=== PATIENT | female | born 1990 | race Caucasian/White ===

== ENCOUNTER 2017-10-22 10:46 | Emergency (ER) | payer MEDICAID, OTHER ==
[~2017-10-22] VITALS: Ht 170.2 cm; Wt 60.0 kg
[~2017-10-22 10:46] MED LIST: CLIN150 PO; HYDR-3533 PO
[2017-10-22 10:47] VITALS: BP 148/72; PULSE 76; RESP 16; TEMP 98.1; O2SAT 99
[2017-10-22 11:03] VITALS: BP 144/82; PULSE 81; RESP 16; O2SAT 99
--- NOTE | 2017-10-22 11:09 | PD ---
HPI Chief Complaint: Related Problem Time Seen by Provider: 10:58 Travel History International Travel<30 days: No Contact w/Intl Traveler<30days: No Traveled to known affect area: No History of Present Illness HPI 27-year-old female presents to the emergency department for evaluation of vaginal bleeding during . Patient states she is in her first trimester , but does not know how far along she has. She states her last menstrual cycle was sometime in May, does not remember when. Patient states is her first . She reports 2 positive test at home. She does not know her blood type. She states she started with vaginal bleeding last night. She has been through 2 pads since then. Patient reports associated abdominal cramping. She denies vaginal discharge or risk of STDs. She reports no chronic medical problems and takes no prescribed medications. Moderate severity. No exacerbating or alleviating factors. PFSH Past Medical History Medical History: Denies Significant Hx Genitourinary: Yes (KIDNEY INFECTIONS.) Immunizations Current: Yes (not sure) Tetanus Vaccination: < 5 Years Influenza Vaccination: No ?: LMP: UNSURE : 1 Para: 0 Past Surgical History Surgical History: No Previous Surgery Social History Alcohol Use: No (not currently) Tobacco Use: Yes Substance Use: Yes (marijuana, quit) Allergies-Medications (Allergen,Severity, Reaction): Coded Allergies: Sulfa (Sulfonamide Antibiotics) (Unverified Allergy, Intermediate, ) Reported Meds & Prescriptions Reported Meds & Active Scripts Active Review of Systems Except as stated in HPI: all other systems reviewed are Neg Physical Exam Narrative GENERAL: Well-nourished, well-developed female patient, afebrile. SKIN: Focused skin assessment warm/dry. HEAD: Normocephalic. Atraumatic. EYES: No scleral icterus. No injection or drainage. NECK: Supple, trachea midline. No JVD or lymphadenopathy. CARDIOVASCULAR: Regular rate and rhythm without murmurs, gallops, or rubs. RESPIRATORY: Breath sounds equal bilaterally. No accessory muscle use. Lungs sounds are clear to auscultation. GASTROINTESTINAL: Abdomen soft, non-tender, nondistended. MUSCULOSKELETAL: No cyanosis, or edema. BACK: Nontender without obvious deformity. No CVA tenderness. GENITOURINARY: Normal external genitalia without lesions or erythema. Vaginal vault with blood noted. Cervical os with blood coming from os. No cervical motion tenderness. Uterus nontender and nonenlarged. Bilateral adnexa nontender without masses. This exam was done with RN at bedside. Data Data Last Documented VS Vital Signs Date Time Temp Pulse Resp B/P (MAP) Pulse Ox O2 Delivery O2 Flow Rate FiO2 10/22/17 11:03 81 16 144/82 (102) 99 Room Air 10/22/17 10:47 98.1 Orders Orders Beta Hcg (Quant/Titer) (10/22/17 11:08) Complete Blood Count With Diff (10/22/17 11:08) Basic Metabolic Panel (Bmp) (10/22/17 11:08) Complete Rh (10/22/17 11:08) Urinalysis - C+S If Indicated (10/22/17 11:08) Urine Culture (10/22/17 11:20) Us Pelvis (Ques Pr/Ect)W Trans (10/22/17 ) Labs Laboratory Tests Test 10/22/17 11:15 10/22/17 11:20 White Blood Count 6.1 TH/MM3 Red Blood Count 4.46 MIL/MM3 Hemoglobin 14.0 GM/DL Hematocrit 40.8 % Mean Corpuscular Volume 91.5 FL Mean Corpuscular Hemoglobin 31.5 PG Mean Corpuscular Hemoglobin Concent 34.4 % Red Cell Distribution Width 12.2 % Platelet Count 174 TH/MM3 Mean Platelet Volume 9.5 FL Neutrophils (%) (Auto) 51.6 % Lymphocytes (%) (Auto) 30.6 % Monocytes (%) (Auto) 16.2 % Eosinophils (%) (Auto) 1.1 % Basophils (%) (Auto) 0.5 % Neutrophils # (Auto) 3.2 TH/MM3 Lymphocytes # (Auto) 1.9 TH/MM3 Monocytes # (Auto) 1.0 TH/MM3 Eosinophils # (Auto) 0.1 TH/MM3 Basophils # (Auto) 0.0 TH/MM3 CBC Comment DIFF FINAL Differential Comment Blood Urea Nitrogen 10 MG/DL Creatinine 0.70 MG/DL Random Glucose 92 MG/DL Calcium Level 8.7 MG/DL Sodium Level 136 MEQ/L Potassium Level 3.8 MEQ/L Chloride Level 105 MEQ/L Carbon Dioxide Level 23.2 MEQ/L Anion Gap 8 MEQ/L Estimat Glomerular Filtration Rate 102 ML/MIN Human Chorionic Gonadotropin, Quant 1219 MIU/ML Urine Color RED Urine Turbidity CLOUDY Urine pH 5.5 Urine Specific [place] 1.021 Urine Protein 100 mg/dL Urine Glucose (UA) NEG mg/dL Urine Ketones TRACE mg/dL Urine Occult Blood LARGE Urine Nitrite NEG Urine Bilirubin NEG Urine Urobilinogen LESS THAN 2.0 MG/DL Urine Leukocyte Esterase MOD Urine RBC /hpf Urine WBC 136 /hpf Urine Squamous Epithelial Cells 56 /hpf Urine Bacteria MOD /hpf Urine Mucus FEW /lpf Microscopic Urinalysis Comment CULTURE INDICATED MDM Medical Decision Making Medical Screen Exam Complete: Yes Emergency Medical Condition: Yes Medical Record Reviewed: Yes Interpretation(s) Last Impressions Pelvis Ultrasound 10/22/17 0000 Signed Impressions: Service Date/Time: Sunday, October 22, 2017 12:21 - CONCLUSION: Likely early intrauterine gestation. Clinical, laboratory and ultrasound followup as appropriate Cipriano Castillo MD Differential Diagnosis Threatened versus spontaneous versus intrauterine versus UTI Narrative Course 27-year-old female presents to the emergency department for evaluation of vaginal bleeding during . CBC, BMP, beta hCG, complete Rh, UA, urine tests are ordered and pending. Ultrasound is ordered and pending. CBC shows no acute abnormality. BMP is unremarkable. Beta HCG is 1219. UA shows moderate leukocyte esterase, 136 WBC. Blood type is A+. US shows likely early intrauterine gestation; clinical, laboratory and ultrasound follow-up as appropriate. I discussed results with the patient. She is instructed to follow up with an tuber helper. I'll give her the information for the [facility]. She needs repeat beta hCG in 48 hours. She verbalizes understanding. Patient will be discharged prescription for Macrobid for UTI. I did instruct her to be on pelvic rest until cleared by tuber helper. The patient was discharged in stable condition with instructions, including return instructions and follow up instructions. Diagnosis Primary Impression: Threatened miscarriage Referrals: [facility] call for appointment [employer] call for appointment Patient Instructions: General Instructions, Threatened Miscarriage (ED) Additional Instructions: Pelvic rest. Follow-up with tuber helper in 48 hours for repeat beta hCG. Take antibiotic as directed until gone for UTI. Follow-up with your primary care physician. Return to the emergency department for any acute worsening of symptoms. Med/Other Pt SpecificInfo: Prescription(s) given Scripts Nitrofurantoin Monohydrate Macrocrystals (Macrobid) 100 Mg Capsule 100 MG PO BID for Infection for 7 Days, #14 CAP 0 Refills Prov: Bailee Agarwal 10/22/17 Disposition: 01 DISCHARGE HOME Condition: Stable Bailee Agarwal Oct 22, 2017 11:09
[2017-10-22 11:35] LABS: AUTOMATED NEUTROPHIL # 3.2 TH/MM3 (1.8-7.7); BASOPHIL % 0.5 % (0.0-2.0); EOSINOPHIL # 0.1 TH/MM3 (0-0.4); EOSINOPHIL % 1.1 % (0.0-4.0); HEMATOCRIT 40.8 % (35.0-46.0); LYMPH % 30.6 % (9.0-44.0); LYMPHOCYTE # 1.9 TH/MM3 (1.0-4.8); MEAN CELL VOLUME 91.5 FL (80.0-100.0); MEAN CORPUSCULAR HEMOGLOBIN 31.5 PG (27.0-34.0); MEAN CORPUSCULAR HGB CONC 34.4 % (32.0-36.0); MEAN PLATELET VOLUME 9.5 FL (7.0-11.0); MONO % 16.2 % (0.0-8.0); NEUT % 51.6 % (16.0-70.0); PLATELET COUNT 174 TH/MM3 (150-450); RED BLOOD COUNT 4.46 MIL/MM3 (4.00-5.30); RED CELL DISTRIBUTION WIDTH 12.2 % (11.6-17.2); WHITE BLOOD COUNT 6.1 TH/MM3 (4.0-11.0)
[2017-10-22 11:45] LABS: BACTERIA, URINE MOD /hpf; BILIRUBIN, URINE NEG (NEG); BLOOD, URINE LARGE (NEG); GLUCOSE,URINE NEG (NEG); KETONE, URINE TRACE mg/dL (NEG); MUCUS URINE FEW /lpf (OCC); NITRITE,URINE NEG (NEG); PH, URINE 5.5 (5.0-8.5); URINE LEUKOCYTE ESTERASE MOD (NEG)
[2017-10-22 11:49] LABS: URINE COLOR RED (YELLW/STRAW)
[2017-10-22 11:52] LABS: SQUAMOUS EPITHELIAL CELL URINE 56 /hpf (0-5)
[2017-10-22 11:55] LABS: BICARBONATE 23.2 MEQ/L (21.0-32.0); CALCIUM 8.7 MG/DL (8.5-10.1); CREATININE 0.7 MG/DL (0.50-1.00)
--- NOTE | 2017-10-22 13:29 | RADRPT ---
EXAM DATE/TIME: 10/22/2017 12:21 [facility] COMPARISON: No previous studies available for comparison. INDICATIONS : Vaginal bleeding. LAB(S): Beta-hC MEDICAL HISTORY : . Kidney infections. SURGICAL HISTORY : None. ENCOUNTER: Initial ACUITY: 1 day PAIN SCORE: 5/10 LOCATION: Bilateral pelvis MEASUREMENTS: UTERUS: 9.4 x 6.1 x 5.4 cm ENDOMETRIAL STRIPE: 14 mm RIGHT OVARY: 3.0 x 2.0 x 1.8 cm LEFT OVARY: 3.7 x 2.9 x 2.2 cm FREE FLUID: No CROWN RUMP LENGTH: 0.26 cm = 5 WKS 6 DAYS FHR: BPM FINDINGS: UTERUS: This potentially a small intrauterine gestation present in the left upper body of the uterus. Estimat ed gestational sac diameter is less than 6 mm which is too early for age estimation. There is some in ternal architecture which may reflect tissue. No cardiac activity is yet detected. RIGHT OVARY: Ovary contains no mass or significant cystic lesion. LEFT OVARY: Ovary contains no mass or significant cystic lesion. MISCELLANEOUS: No free fluid. CONCLUSION: Likely early intrauterine gestation. Clinical, laboratory and ultrasound followup as appropriate Cipriano Castillo MD on October 22, 2017 at 13:17 Board Certified Radiologist. This report was verified electronically.
[2017-10-22] MEDS ORDERED: MACR100C2 PO (13:54)
== END 2017-10-22 14:25 | disposition home or self-care (01) ==
LOC: NEPD 10:46
DX: O20.0 Threatened abortion (principal); O23.41 Unspecified infection of urinary tract in pregnancy, first trimester; Z3A.00 Weeks of gestation of pregnancy not specified
CPT/HCPCS: 76700; 76817; 80048; 81001; 84702; 85025; 86901; 87086; 99284

== ENCOUNTER 2017-10-24 13:50 | Emergency (ER) | payer MEDICAID, OTHER ==
[~2017-10-24] VITALS: Ht 170.2 cm; Wt 57.0 kg
[~2017-10-24 13:50] MED LIST changes: -CLIN150 PO; -HYDR-3533 PO; +MACR100C2 PO
[2017-10-24 13:55] VITALS: BP 144/88; PULSE 89; RESP 16; TEMP 98.7; O2SAT 96
--- NOTE | 2017-10-24 14:14 | PD ---
HPI Chief Complaint: Related Problem Time Seen by Provider: 14:01 Travel History International Travel<30 days: No Contact w/Intl Traveler<30days: No Traveled to known affect area: No History of Present Illness HPI This 27-year-old female presents for reevaluation of vaginal bleeding. She was a patient at the [facility] on the . She had gone there because of vaginal bleeding. She is in her first trimester. This is her first . She had a beta titer of 1219. She is Rh+. She had an ultrasound which was thought to show an intrauterine gestational sac less than 6 mm. No cardiac activity was seen. Patient was released with recommendations that she be reevaluated 2 days. After being released she did have some ongoing bleeding and pain but her pain has now subsided. She still having some light bleeding PFSH Past Medical History Genitourinary: Yes (KIDNEY INFECTIONS.) Immunizations Current: Yes (not sure) Influenza Vaccination: No ?: Unknown LMP: UNKNOWN : 1 Para: 0 Social History Alcohol Use: No (not currently) Tobacco Use: Yes (1/2ppd) Substance Use: Yes (marijuana, quit) Allergies-Medications (Allergen,Severity, Reaction): Coded Allergies: Sulfa (Sulfonamide Antibiotics) (Unverified Allergy, Intermediate, ) Reported Meds & Prescriptions Reported Meds & Active Scripts Active Macrobid (Nitrofurantoin Monohydrate Macrocrystals) 100 Mg Capsule 100 Mg PO BID 7 Days Review of Systems General / Constitutional: No: Fever, Chills Cardiovascular: No: Chest Pain or Discomfort Respiratory: No: Shortness of Breath Gastrointestinal: No: Vomiting, Diarrhea Genitourinary: Positive: Vaginal Bleeding, No: Urgency Physical Exam Narrative GENERAL: Well-developed female SKIN: Focused skin assessment warm/dry. HEAD: Atraumatic. Normocephalic. EYES: Pupils equal and round. No scleral icterus. No injection or drainage. ENT: No nasal bleeding or discharge. Mucous membranes pink and moist. NECK: Trachea midline. No JVD. GASTROINTESTINAL: Abdomen soft, non-tender, nondistended. Hepatic and splenic margins not palpable. Pelvic exam was not repeated as the patient reports decreased bleeding and no pain MUSCULOSKELETAL: No obvious deformities. No clubbing. No cyanosis. No edema. NEUROLOGICAL: Awake and alert. No obvious cranial nerve deficits. Motor grossly within normal limits. Normal speech. PSYCHIATRIC: Appropriate mood and affect; insight and judgment normal. Data Data Last Documented VS Vital Signs Date Time Temp Pulse Resp B/P (MAP) Pulse Ox O2 Delivery O2 Flow Rate FiO2 10/24/17 13:55 98.7 89 16 144/88 (106) 96 Orders Orders Complete Blood Count With Diff (10/24/17 14:11) Beta Hcg (Quant/Titer) (10/24/17 14:11) Labs Laboratory Tests Test 10/24/17 14:15 White Blood Count 6.5 TH/MM3 Red Blood Count 4.38 MIL/MM3 Hemoglobin 13.2 GM/DL Hematocrit 39.3 % Mean Corpuscular Volume 89.9 FL Mean Corpuscular Hemoglobin 30.1 PG Mean Corpuscular Hemoglobin Concent 33.5 % Red Cell Distribution Width 11.4 % Platelet Count 175 TH/MM3 Mean Platelet Volume 9.1 FL Neutrophils (%) (Auto) 57.9 % Lymphocytes (%) (Auto) 34.3 % Monocytes (%) (Auto) 6.7 % Eosinophils (%) (Auto) 0.6 % Basophils (%) (Auto) 0.5 % Neutrophils # (Auto) 3.9 TH/MM3 Lymphocytes # (Auto) 2.2 TH/MM3 Monocytes # (Auto) 0.4 TH/MM3 Eosinophils # (Auto) 0.0 TH/MM3 Basophils # (Auto) 0.0 TH/MM3 CBC Comment DIFF FINAL Differential Comment Human Chorionic Gonadotropin, Quant 195 MIU/ML [facility] Medical Decision Making Medical Screen Exam Complete: Yes Emergency Medical Condition: Yes Medical Record Reviewed: Yes Differential Diagnosis Differential includes threatened AB, miscarriage, Narrative Course Her beta titer today is 195 compared to a value of 1219 2 days ago. This almost certainly represents miscarriage. She will be released Diagnosis Primary Impression: Miscarriage Disposition: 01 DISCHARGE HOME Condition: Stable Napoleon Fuentes MD Oct 24, 2017 14:14
[2017-10-24 14:29] LABS: AUTOMATED NEUTROPHIL # 3.9 TH/MM3 (1.8-7.7); BASOPHIL % 0.5 % (0.0-2.0); EOSINOPHIL % 0.6 % (0.0-4.0); HEMATOCRIT 39.3 % (35.0-46.0); HEMOGLOBIN 13.2 GM/DL (11.6-15.3); LYMPH % 34.3 % (9.0-44.0); LYMPHOCYTE # 2.2 TH/MM3 (1.0-4.8); MEAN CELL VOLUME 89.9 FL (80.0-100.0); MEAN CORPUSCULAR HEMOGLOBIN 30.1 PG (27.0-34.0); MEAN CORPUSCULAR HGB CONC 33.5 % (32.0-36.0); MEAN PLATELET VOLUME 9.1 FL (7.0-11.0); MONO % 6.7 % (0.0-8.0); MONOCYTE # 0.4 TH/MM3 (0-0.9); NEUT % 57.9 % (16.0-70.0); PLATELET COUNT 175 TH/MM3 (150-450); RED BLOOD COUNT 4.38 MIL/MM3 (4.00-5.30); RED CELL DISTRIBUTION WIDTH 11.4 % (11.6-17.2); WHITE BLOOD COUNT 6.5 TH/MM3 (4.0-11.0)
== END 2017-10-24 15:22 | disposition home or self-care (01) ==
LOC: PHED 13:50
DX: O03.9 Complete or unspecified spontaneous abortion without complication (principal); F17.210 Nicotine dependence, cigarettes, uncomplicated; Z88.2 Allergy status to sulfonamides; Z79.2 Long term (current) use of antibiotics
CPT/HCPCS: 84702; 85025; 99283